=== PATIENT | female | born 1995 | race African-American/Black ===

== ENCOUNTER 2024-02-01 16:42 | Emergency (ER) | payer MEDICAID ==
[~2024-02-01] VITALS: Ht 167.6 cm; Wt 77.0 kg
[2024-02-01 16:55] VITALS: TEMP 98.6; O2SAT 99
[2024-02-01] MEDS: IBUPROFEN 400MG TABLET PO ONE (18:46)
[2024-02-01] MEDS ORDERED: NAPR220C61 MT (19:30)
[2024-02-01 20:04] VITALS: BP 123/86; PULSE 84; RESP 16
== END 2024-02-01 20:00 | disposition home or self-care (01) ==
LOC: ER 16:42
DX: S99.912A Unspecified injury of left ankle, initial encounter (principal); G89.11 Acute pain due to trauma; V49.59XA Passenger injured in collision with other motor vehicles in traffic accident, initial encounter; Y93.89 Activity, other specified; Y92.89 Other specified places as the place of occurrence of the external cause; Y99.8 Other external cause status
CPT/HCPCS: 73600; 99283; Z7610